=== PATIENT | male | born 1960 | race Caucasian/White ===

== ENCOUNTER 2019-03-14 15:53 | Emergency (ER) | payer OTHER ==
[~2019-03-14] VITALS: Ht 170.2 cm; Wt 102.1 kg
[2019-03-14] MEDS ORDERED: Tylenol #3 tab (300mg/30mg) ORAL ONE (16:15)
--- NOTE | 2019-03-14 16:15 | NUR ---
ED Nurse Note: Patient presents to ED due to right ankle injury. Patient fell from the back of the truck and rolled his right ankle. c/o pain, numbness and patient unable to put weight on the right foot. Clean, dry right ankle without swelling or redness noted. Able to wiggle right toes with cap refil < 3 sec. Transferred patient to the room in wheelchair.
--- NOTE | 2019-03-14 17:15 | NUR ---
ED Nurse Note: Patient sleeping in bed. No facial grimacing or guarding noted.
--- NOTE | 2019-03-14 17:20 | Diagnostic Imaging Report ---
EXAM: XR Right Ankle Complete, 3 or More Views CLINICAL HISTORY: TRAUMA TECHNIQUE: Frontal, lateral and oblique views of the right ankle. COMPARISON: None FINDINGS: Bones/joints: No displaced fracture or dislocation identified. Ankle mortise is intact. Small ossification dorsally between the talus and navicular bone may represent old trauma. Right ankle joint effusion. Soft tissues: Normal. IMPRESSION: No displaced fracture or dislocation identified.
--- NOTE | 2019-03-14 17:31 | Emergency Room Report ---
History of Present Illness General Chief Complaint: Lower Extremity Injury Source: Patient Present Illness HPI 58-year-old male with no significant past medical history here complaining of right ankle pain after he tried to step down off of his truck today. Patient reports twisting injury rating the pain 10 out of 10 with radiation to right calf denying right calf tenderness. Has full range of motion right foot and can move his toes without pain and has full sensation in his foot. Denies tingling and numbness. Has been icing the affected area however has not taken any medication for pain. Patient denies all other injuries, chest pain, palpitation, shortness of breath, all other associated symptoms. Patient reports that this is a work-related injury Allergies: Coded Allergies: No Known Allergies (Unverified , 03/14/19) Patient History Past Medical History: see triage record Past Surgical History: unable to obtain Pertinent Family History: none Immunizations: UTD Reviewed Nursing Documentation: PMH: Agreed; PSxH: Agreed Nursing Documentation-PM Past Medical History: No Stated History Review of Systems All Other Systems: negative except mentioned in HPI Physical Exam Vital Signs Date Time Temp Pulse Resp B/P (MAP) Pulse Ox O2 Delivery O2 Flow Rate FiO2 03/14/19 16:00 98.1 78 18 149/95 (113) 100 Room Air Sp02 EP Interpretation: reviewed, normal General Appearance: normal inspection, well appearing, no apparent distress Head: normocephalic Eyes: bilateral eye normal inspection, bilateral eye PERRL ENT: normal ENT inspection, hearing grossly normal Neck: normal inspection, full range of motion, supple Respiratory: normal inspection, chest non-tender, lungs clear, no rhonchi, no wheezing Cardiovascular #1: normal inspection, regular rate, rhythm, no murmur Cardiovascular #2: 2+ dorsalis pedis (R), 2+ dorsalis pedis (L) Gastrointestinal: normal inspection, soft Genitourinary: no CVA tenderness Musculoskeletal: back normal, digits/nails normal, no calf tenderness, Freddy's Sign negative, swelling - right medial ankle Neurologic: normal inspection, alert, oriented x3 Psychiatric: normal inspection, judgement/insight normal Skin: normal inspection, no rash, warm/dry, other - No ecchymosis noted Lymphatic: normal inspection, no adenopathy Medical Decision Making PA Attestation All my diagnosis and treatment plans were reviewed ad discussed with my supervising physician Dr. Oconnor Diagnostic Impression: Primary Impression: Right ankle sprain ER Course 58-year-old male with no significant past medical history here complaining of right ankle pain after he tried to step down off of his truck today. Patient reports twisting injury rating the pain 10 out of 10 with radiation to right calf denying right calf tenderness. Has full range of motion right foot and can move his toes without pain and has full sensation in his foot. Denies tingling and numbness. Has been icing the affected area however has not taken any medication for pain. Patient denies all other injuries, chest pain, palpitation, shortness of breath, all other associated symptoms. Patient reports that this is a work-related injury Ddx considered but are not limited to: ankle sprain, ankle strain, ankle fracture, ankle contusion Vital signs: are WNL, pt. is afebrile H&PE are most consistent with: Right ankle sprain ORDERS right ankle x-ray, Tylenol 3, naproxen, Voltaren gel ED INTERVENTIONS: Tylenol 3, Jonny bandage DISCHARGE: At this time pt. is stable for d/c to home. Will provide printed patient care instructions, and any necessary prescriptions. Care plan and follow up instructions have been discussed with the patient prior to discharge. Keep affected area elevated alternate between icing and heating follow-up with a primary care provider avoid strenuous physical activity take medication as directed Other X-Ray Diagnostic Results Other X-Ray Diagnostic Results : X-Ray ordered: Right ankle # of Views/Limited Vs Complete: 3 View Indication: Pain EP Interpretation: Yes PA Xray: Interpretation reviewed, by supervising MD, and agrees with findings. Interpretation: no dislocation, no soft tissue swelling Impression: No acute disease Electronically Signed by: kala BOWIE Scribmarleni Text FINDINGS: Bones/joints: No displaced fracture or dislocation identified. Ankle mortise is intact. Small ossification dorsally between the talus and navicular bone may represent old trauma. Right ankle joint effusion. Soft tissues: Normal. IMPRESSION: No displaced fracture or dislocation identified. Last Vital Signs Date Time Temp Pulse Resp B/P (MAP) Pulse Ox O2 Delivery O2 Flow Rate FiO2 03/14/19 16:52 98.1 03/14/19 16:00 78 18 149/95 (113) 100 Room Air Disposition: HOME, SELF-CARE Condition: Stable Scripts Diclofenac Sodium (VOLTAREN) 100 Gm Gel..gram. 2 GM TP TID, #100 GM Prov: Kala Spencer 03/14/19 Naproxen* (NAPROXEN*) 500 Mg Tablet 500 MG ORAL TWICE A DAY, #30 TAB Prov: Kala Spencer 03/14/19 Patient Instructions: Ankle Sprain Additional Instructions: Take medication as directed keep your right leg elevated avoid strenuous physical activity follow-up with your primary care physician Kala Spencer Mar 14, 2019 17:31
[2019-03-14] MEDS ORDERED: NAPROXEN500 M2 ORAL (17:32)
[2019-03-14] MEDS ORDERED: VOLTAREN100 G1 TP (17:32)
[2019-03-14 17:41] VITALS: BP 121/74
--- NOTE | 2019-03-14 17:43 | NUR ---
ER DISCHARGE NOTE: Applied DARCIE WRAP to right foot. Patient is being discharged from medical care. Awake, alert and oriented x4. After care instructions, including prescriptions were given. Patient verbalized understanding of After care instructions. ID band were removed. Patient ambulated out with all personal belongings with steady gait.
== END 2019-03-14 17:41 | disposition home or self-care (01) ==
LOC: EMR 17:30
DX: S93.401A Sprain of unspecified ligament of right ankle, initial encounter (principal); X50.1XXA Overexertion from prolonged static or awkward postures, initial encounter; Y92.9 Unspecified place or not applicable
CPT/HCPCS: 99283